=== PATIENT | male | born 1995 | race Caucasian/White ===

== ENCOUNTER 2018-06-17 16:20 | Emergency (ER) | payer MEDICAID ==
[2018-06-17] MEDS: SOD CHLORIDE 0.9% 1,800 ML IV (17:29)
[2018-06-17] MEDS: ONDANSETRON 4 MG INJ IV (17:30)
[2018-06-17 17:31] LABS: ADD MAN DIFF? NO
[2018-06-17] MEDS: morphine 4 MG/ML VIAL IV (17:31)
[2018-06-17 17:32] LABS: WHITE BLOOD COUNT 10.4 10^3/ul (4.8-10.8)
[2018-06-17 17:32] LABS: BASOPHILS % 0.4 % (0.0-2.0); EOSINOPHILS # 0.1 10^3/ul (0.0-0.5); EOSINOPHILS % 0.6 % (0.0-7.0); HEMATOCRIT 29.6 % (42.0-52.0); HEMOGLOBIN 9.5 g/dl (14.0-18.0); LYMPHOCYTES # 2.4 10^3/ul (0.8-2.9); LYMPHOCYTES % 23.3 % (15.0-51.0); MEAN CORPUSCULAR HGB CONC 32.1 g/dl (32.0-37.0); MEAN CORPUSCULAR VOLUME 87.3 fl (82.0-101.0); MONOCYTE # 0.8 10^3/ul (0.3-0.9); MONOCYTES % 7.6 % (0.0-11.0); NEUTROPHILS % 67.1 % (39.0-77.0); PLATELET COUNT 281 10^3/UL (140-415); RED BLOOD COUNT 3.39 10^6/ul (4.70-6.10)
[2018-06-17 17:39] LABS: ADD UMIC NO; UR ASCORBIC ACID NEGATIVE (NEGATIVE); UR BILIRUBIN (Dip) NEGATIVE (NEGATIVE); UR BLOOD (Dip) NEGATIVE (NEGATIVE); UR CLARITY CLEAR (CLEAR); UR COLOR YELLOW (YELLOW); UR GLUCOSE (Dip) NEGATIVE (NEGATIVE); UR KETONES (Dip) NEGATIVE (NEGATIVE); UR LEUKOCYTE ESTERASE (Dip) NEGATIVE Leu/ul (NEGATIVE); UR NITRITE (Dip) NEGATIVE (NEGATIVE); UR SPECIFIC GRAVITY (Dip) 1.031 (1.003-1.030); UR TOTAL PROTEIN (Dip) NEGATIVE (NEGATIVE); UR UROBILINOGEN (Dip) NEGATIVE (NEGATIVE)
[2018-06-17 18:02] LABS: ALANINE AMINOTRANSFERASE 47 IU/L (13-69); ALBUMIN/GLOBULIN RATIO 1.42; ALKALINE PHOSPHATASE 66 IU/L (42-121); ANION GAP 15 (8-16); ASPARTATE AMINO TRANSFERASE 25 IU/L (15-46); BILIRUBIN,INDIRECT 0.2 mg/dl (0-1.1); BILIRUBIN,TOTAL 0.2 mg/dl (0.2-1.3); BLOOD UREA NITROGEN 31 mg/dl (7-20); CALCIUM 9.2 mg/dl (8.4-10.2); CARBON DIOXIDE 28 mmol/L (21-31); CHLORIDE 104 mmol/L (97-110); CREATININE 1.01 mg/dl (0.61-1.24); GLUCOSE 109 mg/dl (70-220); LIPASE 36 U/L (23-300); POTASSIUM 4.2 mmol/L (3.5-5.1); SODIUM 143 mmol/L (135-144); TOTAL PROTEIN 6.8 g/dl (6.1-8.1)
[2018-06-17] MEDS: FAMOTIDINE 20 MG INJ IV (18:41)
[2018-06-17] MEDS: SOD CHLORIDE 0.9% 100 ML (19:08)
[2018-06-17] MEDS: IOHEXOL 300MG/ML 150 ML BTL (19:09)
[2018-06-17 20:09] LABS: OCCULT BLOOD STOOL POSITIVE (NEGATIVE)
== END 2018-06-17 20:54 | disposition home or self-care (01) ==
LOC: FTE 16:20
DX: K92.1 Melena (principal)
CPT/HCPCS: 74177; 80053; 81003; 82270; 83690; 85025; 96374; 96375; 99285-25

== ENCOUNTER 2019-01-11 08:06 | Emergency (ER) | payer MEDICAID ==
[2019-01-11] MEDS: KETOROLAC 60 MG INJ IM (08:58)
== END 2019-01-11 09:02 | disposition home or self-care (01) ==
LOC: FTE 08:06
DX: J02.9 Acute pharyngitis, unspecified (principal)
CPT/HCPCS: 96372; 99284-25